=== PATIENT | male | born 1980 | race Hispanic/Latino ===

== ENCOUNTER 2016-12-25 15:36 | Emergency (ER) | payer BC ==
[2016-12-25 15:42] VITALS: BP 140/87
[2016-12-25] MEDS ORDERED: DIPHTH,PERTUSS(ACELL),TET VAC 0.5 ML VIAL IM ONE ×2 (15:59→16:16)
--- NOTE | 2016-12-25 16:08 | ERNOTE ---
Medical Problem HPI - Narrative Date of Service: 12/25/16 - General Chief Complaint: Laceration Time Seen by Provider: 12/25/16 15:57 Source: patient Exam Limitations: no limitations - Immun/Allergies/Home Medications Immunizations: IMMUNIZATION HX Immunizations Up to Date Yes History of Influenza Vaccine No Hx Pneumococcal Vaccination No Allergies/Adverse Reactions: Allergies acetaminophen [From Percocet] Allergy (Intermediate, Verified 12/25/16 15:42) Itching oxycodone [From Percocet] Allergy (Intermediate, Verified 12/25/16 15:42) Itching Home Medications: HOME MEDICATIONS Amox Tr/Potassium Clavulanate [Augmentin 875-125 Tablet] 1 each PO Q12H #14 tablet 12/25/16 [Last Taken Unknown] - History of Present History Narrative: patient states he was putting up a rack when his screw gun slipped and hit his right hand resulting in a laceration to his right middle and ring finger knuckles Date (Duration): 12/25/16 Timing: constant Severity: mild Modifying Factors - (Improves): Present: rest Review of Systems - Review of Systems Constitutional: Present: no symptoms reported EYE: Present: no symptoms reported ENT: Present: no symptoms reported Respiratory: Present: no symptoms reported Cardiology: Present: no symptoms reported Gastrointestinal/Abdominal: Present: no symptoms reported Genitourinary: Present: no symptoms reported Musculoskeletal: Present: See HPI. Absent: joint pain Skin: Present: See HPI, lesions Neurological: Present: no symptoms reported Endocrine: Present: no symptoms reported Hematologic/Lymphatic: Present: no symptoms reported Psych: Present: no symptoms reported - Patient's Past Medical History Patient History - Medical: Other Patient History - Cardiac/Respiratory: No pertinent hx Patient History - Cancer: No Hx of Cancer Patient History - Surgical Procedures: Back Surgery Patient History - Other: None - Social History Living Situations: home Psych History: No pertinent hx Smoking Status: Never smoker - Immunizations Immunizations Up to Date: Yes Hx Pneumococcal Vaccination: No History of Influenza Vaccine: No Physical Exam - Physical Exam Narrative: right middle finger has a 1.5 lac above the proximal knuckle and a 0.5 on the proximal ring finger. General Appearance: Present: wd/wn, alert, no apparent distress Head Exam: Present: normal inspection, no evidence of injury Eye Exam: Normal inspection: bilateral Ears, Nose, Throat: Present: normal ENT inspection, normal pharynx Neck: Present: normal inspection, nontender Respiratory: Present: no respiratory distress, normal breath sounds, no accessory muscle use, chest nontender, lungs clear Cardiovascular/Chest: Present: regular rate, rhythm, no murmur, normal peripheral pulses Peripheral Pulses: N=norm/S=strong/W=weak/B=bound/A=absent: Radial (R): Normal, Radial (L): Normal, Dorsalis-pedis (R): Normal, Dorsalis-pedis (L): Normal Gastrointestinal/Abdominal: Present: normal bowel sounds, nontender, soft Back Exam: Present: normal inspection, normal range of motion, no CVA tenderness , no vertebral tenderness Extremity Exam: Present: normal inspection, non-tender, normal range of motion, no edema Neurological Exam: Present: alert, oriented, normal mood/affect, no motor/ sensory deficits Skin Exam: Present: normal color, warm/dry, other Lymphatic Exam: Present: no adenopathy ED Progress - Vital Signs Patient's Vital Signs:: I have reviewed the patient's vital signs. Vital Signs: Vital Signs 12/25/16 15:39 Temperature 36.8 C Pulse Rate 60 Respiratory 16 Rate Blood Pressure 140/87 O2 Sat by Pulse 87 L Oximetry - X-Ray X-Ray #2 X-Ray: hand Interpretation: Reviewed by me X-ray Comments: no fracture or foreign body observed per Dr mccoy. - Progress/Reassessment Chief Complaint: Laceration Progress:: Improved Procedures Right Proximal Finger 3rd Digit Anesthesia: 1% Lidocaine I & D Prep: betadine prep, sterile drapes applied Wound's Depth/Shape: into subcutaneous, linear Wound Explored: clean, no foreign body Wound Intervention: irrigated w/saline Distal NVT: neuro/vasc intact, no tendon injury Suture Size/Type: 4-0, nylon Number of Sutures: 3 Layer Closure: Simple Wound Dressing: sterile dressing applied Complications: Pt sarah procedure well Right Distal Finger 4th Digit I & D Prep: betadine prep Wound's Depth/Shape: superficial, irregular Wound Explored: clean Wound Intervention: irrigated w/saline Distal NVT: neuro/vasc intact, no tendon injury Wound Repaired With: Dermabond Wound Dressing: sterile dressing applied Complications: Pt sarah procedure well Plan - Plan Plan: call placed to ortho Dr. Mccoy r/t possible joint involvement. He is to see the patient in the ER and determine course of action. Dr mccoy here to see patient. he recommends irrigation, suture, 7 days Augmentin and patient to follow up in the office in 7 days for a wound check. Departure - Departure Clinical Impression: Laceration Disposition: Home Follow Up Needed Condition: Good Instructions: Tissue Adhesive Wound Care, Laceration Care, Adult, [id number] Additional Instructions: Continue any previous home medications as directed. Follow-up with the orthopedist next week. You have been given information with his name and number please contact them for an appointment next week to have his stitches removed. Return to the emergency room after developing any signs and symptoms of infection or pain is not able to be controlled with [id number] pain medications. Referrals: Sarah Patton FNP [Primary Care Provider] - Prescriptions: Amox Tr/Potassium Clavulanate [Augmentin 875-125 Tablet] 1 each PO Q12H #14 tablet
== END 2016-12-25 17:05 | disposition home or self-care (01) ==
LOC: ER 15:36
PROC: 0JQJ0ZZ Repair Right Hand Subcutaneous Tissue and Fascia, Open Approach (ICD-10-PCS; principal; 2016-12-25)
DX: S61.212A Laceration without foreign body of right middle finger without damage to nail, initial encounter (principal); S61.214A Laceration without foreign body of right ring finger without damage to nail, initial encounter; W27.8XXA Contact with other nonpowered hand tool, initial encounter; Y93.H3 Activity, building and construction; Z23 Encounter for immunization